=== PATIENT | male | born 1990 | race African-American/Black ===

== ENCOUNTER 2022-12-12 14:43 | Emergency (ER) | payer OTHER ==
[~2022-12-12] VITALS: Ht 175.3 cm; Wt 78.6 kg
[2022-12-12 14:45] VITALS: TEMP 98
[2022-12-12] MEDS ORDERED: FLUORESCEIN SODIUM 1 MG STRIP OD ONE (17:00)
[2022-12-12] MEDS ORDERED: PROPARACAINE HCL 0.5% 15 ML OPHTHALMIC SOLUTION OD ONE (17:00)
[2022-12-12] MEDS ORDERED: ERYT3.5O8 OD (18:09)
[2022-12-12 18:21] VITALS: BP 126/88; PULSE 71; RESP 18
== END 2022-12-12 18:23 | disposition home or self-care (01) ==
LOC: EMS 14:45
DX: H10.9 Unspecified conjunctivitis (principal)
CPT/HCPCS: 99283

== ENCOUNTER 2024-07-05 20:51 | Emergency (ER) | payer OTHER ==
[~2024-07-05] VITALS: Ht 182.9 cm; Wt 79.5 kg
[~2024-07-05 20:51] MED LIST: ERYT3.5O8 OD
[2024-07-05 21:39] VITALS: TEMP 98.2
[2024-07-06] MEDS: TraMADol HCL 50 MG TABLET PO ONE (01:56)
[2024-07-06 02:07] LABS: BASOPHILS % (AUTO) 0.9 % (0.0-2.0); EOSINOPHILS % (AUTO) 2.4 % (1.0-6.0); HEMATOCRIT 43.8 % (41-53); HEMOGLOBIN 14.6 g/dL (13.5-17.5); LYMPHOCYTES # (AUTO) 2.4 K/uL (1.0-4.8); MEAN CORPUSCULAR HEMOGLOBIN 28.4 pg (26.0-34.0); MEAN CORPUSCULAR HGB CONC 33.2 G/dL (31.0-37.0); MEAN CORPUSCULAR VOLUME 86 fL (80-100); MONOCYTES # (AUTO) 0.5 K/uL (0.1-1.0); NEUTROPHILS # (AUTO) 2.3 K/uL (1.8-7.7); NEUTROPHILS % (AUTO) 42.7 % (40.0-70.0); PLATELET COUNT (AUTO) 190 K/uL (150-450); RED BLOOD CELL COUNT(AUTO) 5.12 MIL/uL (4.50-5.90); RED CELL DISTRIBUTION WIDTH 13.1 % (11.5-14.5); WHITE BLOOD COUNT (AUTO) 5.4 K/uL (4.5-11.0)
[2024-07-06 02:17] LABS: ANION GAP 6 mmol/L (8-16); CARBON DIOXIDE 31 mmol/L (22-29); CHLORIDE 99 mmol/L (98-107); GLOMERULAR FILTR. RATE CALC > 60 mL/min (>60); GLUCOSE,RANDOM 98 mg/dL (70-110); POTASSIUM 4.3 mmol/L (3.5-5.1); SODIUM SERUM 136 mmol/L (136-145); UREA NITROGEN, BLOOD 14 mg/dL (7-18)
[2024-07-06 04:37] VITALS: BP 121/75; PULSE 52; RESP 18; O2SAT 98
[2024-07-06] MEDS ORDERED: ACYC-138 PO (04:39)
[2024-07-06] MEDS ORDERED: PRED-554 PO (04:39)
[2024-07-07] MEDS ORDERED: ACET-3385 PO (14:17)
== END 2024-07-06 05:07 | disposition home or self-care (01) ==
LOC: EMS 20:51 → EDUNIT# 20:51 → EMS 07-06 05:07
DX: G51.0 Bell's palsy (principal); M54.2 Cervicalgia
CPT/HCPCS: 70490; 80048; 85025; 99284